=== PATIENT | female | born 1940 | race Caucasian/White ===

== ENCOUNTER 2017-02-01 18:47 | Inpatient (IN) | payer MEDICARE, OTHER ==
--- NOTE | 2017-02-01 19:25 | EDM.PDOC ---
ED HPI GENERAL MEDICAL PROBLEM - General Chief Complaint: Respiratory Problem Stated Complaint: COUGHING, [id number] Time Seen by Provider: 02/01/17 19:25 Source of Information: Reports: Patient History Limitations: Reports: No Limitations - History of Present Illness INITIAL COMMENTS - FREE TEXT/NARRATIVE: cough fever chills since last night, worse now. 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 Headache Pain Score (Numeric/FACES): 2 - Related Data Allergies Allergy/AdvReac Type Severity Reaction Status Date / Time codeine Allergy Redness Verified 02/01/17 19:14 hydrocodone Allergy Itching Verified 02/01/17 19:14 oxycodone Allergy Itching Verified 02/01/17 19:14 Home Meds: Home Meds Aspirin [[place] Aspirin] 81 mg PO DAILY 08/27/14 [History] Calcium Carbonate [Calcium] 500 mg PO DAILY 08/27/14 [History] Cholecalciferol (Vitamin D3) [Vitamin D] 1 tab PO DAILY 08/27/14 [History] Famotidine [Pepcid AC] 20 mg PO ASDIRECTED PRN 08/27/14 [History] Multivitamin [Multivitamins] 1 cap PO DAILY 08/27/14 [History] Naproxen 375 mg PO ASDIRECTED PRN 08/27/14 [History] Ibandronate Sodium 150 mg PO ASDIRECTED 09/01/15 [History] Valsartan/Hydrochlorothiazide [Valsartan-Hctz 320-25 mg Tab] 1 each PO DAILY [History] Past Medical History HEENT History: Reports: Impaired Vision Cardiovascular History: Reports: Hypertension Respiratory History: Reports: None Gastrointestinal History: Reports: GERD Genitourinary History: Reports: UTI, Recurrent [employer]ER History: Reports: Musculoskeletal History: Reports: Osteoarthritis Neurological History: Reports: TIA Psychiatric History: Reports: None Endocrine/Metabolic History: Reports: Diabetes, Type II Hematologic History: Reports: None Immunologic History: Reports: None Other Oncologic History: melanoma Dermatologic History: Reports: Melanoma - Infectious Disease History Infectious Disease History: Reports: Chicken Pox, Measles, Mumps - Past Surgical History HEENT Surgical History: Reports: Cataract Surgery, Naso-Sinus Surgery GI Surgical History: Reports: Appendectomy, Cholecystectomy, Hernia Repair/Other Female Surgical History: Reports: Hysterectomy, Tubal Ligation Social & Family History - Family History Family Medical History: Noncontributory - Tobacco Use Smoking Status *Q: Unknown Ever Smoked Second Hand Smoke Exposure: Yes - Caffeine Use Caffeine Use: Reports: Coffee - Alcohol Use Days Per Week of Alcohol Use: 0 - Recreational Drug Use Recreational Drug Use: No - Living Situation & Occupation Occupation: Retired ED ROS GENERAL - Review of Systems Review Of Systems: ROS reveals no pertinent complaints other than HPI. ED EXAM, GENERAL - Physical Exam Exam: See Below Exam Limited By: No Limitations General Appearance: Alert, WD/WN, Mild Distress, Other (cough spasms) Ears: Hearing Grossly Normal Throat/Mouth: Normal Voice, No Airway Compromise Head: Atraumatic Neck: Non-Tender, Full Range of Motion Respiratory/Chest: No Respiratory Distress, No Accessory Muscle Use, Rhonchi, Wheezing. No: Decreased Breath Sounds, Accessory Muscle Use, Retractions, Splinting Cardiovascular: Regular Rate, Rhythm GI/Abdominal: Soft, Non-Tender Neurological: Alert, Oriented, Normal Cognition, Normal Gait, No Motor/Sensory Deficits Psychiatric: Normal Affect, Normal Mood Skin Exam: Warm, Dry Lymphatic: No Adenopathy Course - Vital Signs Last Recorded V/S: Last Vital Signs Temp 37.3 C 02/01/17 19:07 Pulse 96 02/01/17 19:07 Resp 16 02/01/17 19:07 BP 119/63 02/01/17 19:07 Pulse Ox 97 02/01/17 19:07 - Orders/Labs/Meds Orders: Active Orders 24 hr Category Date Time Status RT Aerosol Therapy [RC] ASDIRECTED Care 02/01/17 20:03 Active CULTURE BLOOD [BC] Stat Lab 02/01/17 19:30 Received Labs: Laboratory Tests 02/01/17 02/01/17 02/01/17 Range/Units 19:30 19:30 19:30 WBC 14.8 H (5.0-10.0) 10^3/uL RBC 4.52 (4.2-5.4) 10^6/uL Hgb 13.5 (12.0-16.0) g/dL Hct 40.6 (37.0-47.0) % MCV 89.8 (80-100) fL MCH 29.9 (27.0-34.0) pg MCHC 33.3 (33.0-35.0) g/dL Plt Count 277 (150-450) 10^3/uL Neut % (Auto) 70.0 (42.2-75.2) % Lymph % (Auto) 16.5 L (20.5-50.1) % [place] % (Auto) 12.6 H (2-8) % Eos % (Auto) 0.8 L (1.0-3.0) % Baso % (Auto) 0.1 (0.0-1.0) % Sodium 136 (135-145) mmol/L Potassium 3.2 L (3.6-5.0) mmol/L Chloride 101 (101-111) mmol/L Carbon Dioxide 26.0 (21.0-31.0) mmol/L Anion Gap 12.2 BUN 12 (7-18) mg/dL Creatinine 0.6 (0.6-1.3) mg/dL Est Cr Clr Drug Dosing TNP Estimated GFR (MDRD) > 60 BUN/Creatinine Ratio 20.00 Glucose 122 H (74-105) mg/dL Lactic Acid 1.1 (0.5-2.2) mmol/L Calcium 8.8 (8.4-10.2) mg/dl Total Bilirubin 0.6 (0.2-1.0) mg/dL AST 14 (10-42) IU/L ALT 14 (10-60) IU/L Alkaline Phosphatase 41 L (42-121) IU/L B-Natriuretic Peptide 42 (0-100) pg/ml Total Protein 7.0 (6.7-8.2) g/dl Albumin 3.8 (3.2-5.5) g/dl Globulin 3.2 Albumin/Globulin Ratio 1.19 Meds: Medications Discontinued Medications Generic Name Dose Route Start Last Admin Trade Name Freq PRN Reason Stop Dose Admin Albuterol/Ipratropium 3 ml 02/01/17 20:03 02/01/17 20:13 Duoneb 3.0-0.5 Mg/3 Ml NEB 02/01/17 20:04 3 ml ONETIME ONE Administration Methylprednisolone Sodium Succinate 125 mg 02/01/17 20:03 02/01/17 20:13 Solu-Medrol IVPUSH 02/01/17 20:04 125 mg ONETIME ONE Administration - Re-Assessments/Exams Free Text/Narrative Re-Assessment/Exam: 02/01/17 20:[address] Bangura who kindly admitted Pt. Departure - Departure Time of Disposition: 20:20 Disposition: Admitted As Inpatient 65 Condition: good Clinical Impression: Pneumonia - Discharge Information Forms: ED Department Discharge - My Orders Last 24 Hours: My Active Orders 02/01/17 19:30 CULTURE BLOOD [BC] Stat 02/01/17 20:03 RT Aerosol Therapy [RC] ASDIRECTED - Assessment/Plan Last 24 Hours: My Active Orders 02/01/17 19:30 CULTURE BLOOD [BC] Stat 02/01/17 20:03 RT Aerosol Therapy [RC] ASDIRECTED
[2017-02-01] MEDS ORDERED: Albuterol/Ipratropium 3.0-0.5 MG/3 ML Neb Soln NEB ONE (20:03)
[2017-02-01] MEDS ORDERED: methylPREDNISolone Sodium Succinate 125 MG/2 ML SDV IVPUSH ONE (20:03)
[2017-02-01 20:04] LABS: CHLORIDE,CL 101 mmol/L (101-111); SODIUM,NA 136 mmol/L (135-145)
[2017-02-01] MEDS ORDERED: Famotidine 20 MG Tab PO PRN (21:00)
[2017-02-01] MEDS ORDERED: Acetaminophen 325 MG Tab PO PRN (21:11)
[2017-02-01] MEDS ORDERED: Docusate Sodium 100 MG Cap PO PRN (21:11)
[2017-02-01] MEDS ORDERED: Albuterol 0.083% 2.5 MG/3 ML Neb Soln NEB PRN (21:11)
--- NOTE | 2017-02-01 21:15 | PCM.HP ---
H&P History of Present Illness - General Date of Service: 02/01/17 Admit Problem/Dx: Admission Diagnosis/Problem Admission Diagnosis/Problem Pneumonia - History of Present Illness Initial Comments - Free Text/Narative: The patient is a 76-year-old lady who presented with subjective fever, cough, change in voice. The cough is associated with yellow sputum production. She has no sick contact. No significant shortness of breath. Symptoms started on Thursday. She has no chest pain, does have chills. No abdominal pain, no diarrhea. Headache Pain Score (Numeric/FACES): 2 - Related Data Allergies/Adverse Reactions: Allergies Allergy/AdvReac Type Severity Reaction Status Date / Time codeine Allergy Redness Verified 02/01/17 19:14 hydrocodone Allergy Itching Verified 02/01/17 19:14 oxycodone Allergy Itching Verified 02/01/17 19:14 Home Medications: Home Meds Aspirin [[place] Aspirin] 81 mg PO DAILY 08/27/14 [History] Calcium Carbonate [Calcium] 500 mg PO DAILY 08/27/14 [History] Cholecalciferol (Vitamin D3) [Vitamin D] 1 tab PO DAILY 08/27/14 [History] Famotidine [Pepcid AC] 20 mg PO ASDIRECTED PRN 08/27/14 [History] Multivitamin [Multivitamins] 1 cap PO DAILY 08/27/14 [History] Naproxen 375 mg PO ASDIRECTED PRN 08/27/14 [History] Ibandronate Sodium 150 mg PO ASDIRECTED 09/01/15 [History] Valsartan/Hydrochlorothiazide [Valsartan-Hctz 320-25 mg Tab] 1 each PO DAILY [History] Past Medical History HEENT History: Reports: Impaired Vision Cardiovascular History: Reports: Hypertension Respiratory History: Reports: None Gastrointestinal History: Reports: GERD Genitourinary History: Reports: UTI, Recurrent [employer] History: Reports: Musculoskeletal History: Reports: Osteoarthritis Neurological History: Reports: TIA Psychiatric History: Reports: None Endocrine/Metabolic History: Reports: Diabetes, Type II Hematologic History: Reports: None Immunologic History: Reports: None Other Oncologic History: melanoma Dermatologic History: Reports: Melanoma - Infectious Disease History Infectious Disease History: Reports: Chicken Pox, Measles, Mumps - Past Surgical History HEENT Surgical History: Reports: Cataract Surgery, Naso-Sinus Surgery GI Surgical History: Reports: Appendectomy, Cholecystectomy, Hernia Repair/Other Female Surgical History: Reports: Hysterectomy, Tubal Ligation Social & Family History - Family History Family Medical History: Noncontributory - Tobacco Use Smoking Status *Q: Unknown Ever Smoked Second Hand Smoke Exposure: Yes - Caffeine Use Caffeine Use: Reports: Coffee - Alcohol Use Days Per Week of Alcohol Use: 0 - Recreational Drug Use Recreational Drug Use: No - Living Situation & Occupation Occupation: Retired H&P Review of Systems - Review of Systems: Review Of Systems: See Below General: Reports: Fever, Chills Pulmonary: Reports: Cough, Sputum. Denies: Shortness of Breath, Wheezing Cardiovascular: Denies: Chest Pain Gastrointestinal: Denies: Abdominal Pain Genitourinary: Denies: Dysuria Exam - Exam Exam: See Below - Vital Signs Vital Signs: Last Vital Signs Temp 37.3 C 02/01/17 19:07 Pulse 96 02/01/17 19:07 Resp 16 02/01/17 19:07 BP 119/63 02/01/17 19:07 Pulse Ox 97 02/01/17 19:07 Weight: 73.936 kg - Exam Quality Assessment: No: Supplemental Oxygen General: Alert, Oriented Neck: Supple, Trachea Midline, 2 Lungs: Clear to Auscultation, Normal Respiratory Effort Cardiovascular: Regular Rate, Regular Rhythm Abdomen: Normal Bowel Sounds, Soft Back Exam: Normal Inspection, Full Range of Motion, NT Extremities: 3, Normal Inspection, 10 Skin: Warm, Dry, Intact Neuro Extensive - Mental Status: Alert, Oriented x3, Normal Mood/Affect, Normal Cognition Psychiatric: Alert, Normal Affect, Normal Mood - Patient Data Result Diagrams: 02/01/17 19:30 02/01/17 19:30 Imaging Impressions last 24 hrs: chest x-ray per official reading shows a left lower lobe pneumonia *Q Meaningful Use (ADM) - VTE *Q VTE Criteria *Q: - Stroke *Q Stroke Criteria *Q: - AMI *Q AMI Criteria *Q: - Problem List (1) Pneumonia SNOMED Code(s): 795587250 ICD Code: J18.9 - PNEUMONIA, UNSPECIFIED ORGANISM Status: Acute Current Visit: Yes Problem List Initiated/Reviewed/Updated: Yes Orders Last 24hrs: Active Orders 24 hr Category Date Time Status Antiembolic Devices [RC] PER UNIT ROUTINE Care 02/01/17 21:12 Ordered Oxygen Therapy [RC] PRN Care 02/01/17 21:11 Ordered Peripheral IV Care [RC] . DIRECTED Care 02/01/17 21:12 Ordered RT Aerosol Therapy [RC] ASDIRECTED Care 02/01/17 21:12 Ordered Up With Assistance [RC] ASDIRECTED Care 02/01/17 21:11 Ordered VTE/DVT Education [RC] PER UNIT ROUTINE Care 02/01/17 21:11 Ordered Vital Signs [RC] Q4H Care 02/01/17 21:11 Ordered Regular Diet [DIET] Diet 02/01/17 Breakfast Ordered BASIC METABOLIC PANEL,BMP [CHEM] AM Lab 02/02/17 05:15 Ordered CBC WITH AUTO DIFF [HEME] AM Lab 02/02/17 05:15 Ordered CULTURE SPUTUM + SMEAR [RM] Routine Lab 02/01/17 21:04 Uncollected STREP SCRN A RAPID W CULT CONF [RM] Routine Lab 02/01/17 21:05 Uncollected Acetaminophen [Tylenol] Med 02/01/17 21:11 Ordered 650 mg PO Q4H PRN Albuterol [Proventil Neb Soln] Med 02/01/17 21:11 Ordered 2.5 mg NEB Q2H PRN Aspirin Med 02/02/17 09:00 Ordered 81 mg PO DAILY Azithromycin [Zithromax] 500 mg Med 02/01/17 21:15 Ordered Sodium Chloride 0.9% [Normal Saline] 250 ml IV Q24H Calcium Carbonate [Calcium] Med 02/02/17 09:00 Ordered 500 mg PO DAILY Cholecalciferol (Vitamin D3) [Vitamin D3] Med 02/02/17 09:00 Ordered 1 tab PO DAILY Docusate Sodium [Colace] Med 02/01/17 21:11 Ordered 100 mg PO BID PRN Famotidine [Pepcid] Med 02/01/17 20:59 Ordered 20 mg PO DAILY PRN Heparin Sodium Med 02/01/17 22:00 Ordered 5,000 units SUBCUT Q8HR Multivitamin [Multivitamins] Med 02/02/17 09:00 Ordered 1 cap PO DAILY Sodium Chloride 0.9% [Saline Flush] Med 02/01/17 21:11 Ordered 10 ml FLUSH ASDIRECTED PRN Valsartan/Hydrochlorothiazide [Valsartan-Hctz 320-25 mg Med 02/02/17 09:00 Ordered Tab] 1 each PO DAILY Zolpidem [Ambien] Med 02/01/17 21:11 Ordered 5 mg PO BEDTIME PRN cefTRIAXone [Rocephin] 1 gm Med 02/01/17 21:15 Ordered Sodium Chloride 0.9% [Normal Saline] 50 ml IV Q24H Antiembolic Hose [OM.PC] Per Unit Routine Ot 02/01/17 21:12 Ordered Peripheral IV Insertion Adult [OM.PC] Routine Oth 02/01/17 21:11 Ordered Saline Lock Insert [OM.PC] Routine Oth 02/01/17 21:11 Ordered Resuscitation Status Routine Resus Stat 02/01/17 21:11 Ordered Medication Orders Aspirin (Aspirin) 81 mg PO DAILY AISHA Famotidine (Pepcid) 20 mg PO DAILY PRN PRN Reason: Heartburn Azithromycin 500 mg/ Sodium (Chloride) 250 mls @ 250 mls/hr IV Q24H AISHA Ceftriaxone Sodium 1 gm/ (Sodium Chloride) 50 mls @ 100 mls/hr IV Q24H AISHA Non-Formulary Medication (Calcium Carbonate [Calcium]) 500 mg PO DAILY AISHA Non-Formulary Medication (Cholecalciferol (Vitamin D3) [Vitamin D3]) 1 tab PO DAILY AISHA Non-Formulary Medication (Multivitamin [Multivitamins]) 1 cap PO DAILY AISHA Non-Formulary Medication (Valsartan/Hydrochlorothiazide [Valsartan-Hctz 320-25 Mg Tab]) 1 each PO DAILY AISHA Assessment/Plan Comment:: 76-year-old lady who presented with cough, yellow sputum, subjective fever, chills Noted to have an abnormal chest x-ray with left lower lobe pneumonia Pneumonia Will obtain blood culture, sputum culture This is a community-acquired pneumonia We'll treat with azithromycin and Rocephin Use as needed albuterol for shortness of breath Hypertension Treat with losartan and hydrochlorothiazide DVT prophylaxis with a subcutaneous heparin
[2017-02-01] MEDS ORDERED: Azithromycin 500 MG in Sodium Chloride 0.9% 250 ML IV SCH (21:30)
[2017-02-01] MEDS ORDERED: Azithromycin 500 MG Vial ONE (22:15)
[2017-02-01] MEDS ORDERED: cefTRIAXone 1 GM Vial ONE (22:23)
[2017-02-01] MEDS: Azithromycin 500 MG in Sodium Chloride 0.9% 250 ML IV SCH (22:28)
[2017-02-01] MEDS: Heparin Sodium 5,000 Units/ML Vial SUBCUT SCH (22:29)
[2017-02-01] MEDS: Zolpidem 5 MG Tab PO PRN (22:29)
[2017-02-01] MEDS: cefTRIAXone 1 GM in Sodium Chloride 0.9% 50 ML IV SCH (23:38)
[2017-02-02] MEDS: Sodium Chloride 0.9% 10 ML Syringe FLUSH PRN (00:17)
[2017-02-02] MEDS: Heparin Sodium 5,000 Units/ML Vial SUBCUT SCH ×3 (05:45→21:40)
[2017-02-02 06:52] LABS: CHLORIDE,CL 101 mmol/L (101-111); SODIUM,NA 138 mmol/L (135-145)
[2017-02-02] MEDS ORDERED: Calcium Carbonate 500 MG Tab.Chew PO SCH (09:00)
[2017-02-02] MEDS: Cholecalciferol (Vitamin D3) 400 Unit Tab PO SCH (11:06)
[2017-02-02] MEDS: Hydrochlorothiazide 25 MG Tab PO SCH (11:07)
[2017-02-02] MEDS: Aspirin 81 MG Tab.Chew PO SCH (11:07)
[2017-02-02] MEDS: Multivitamins,Therapeutic Tab PO SCH (11:08)
--- NOTE | 2017-02-02 11:57 | PCM.PN ---
- General Info Date of Service: 02/02/17 Admission Dx/Problem (Free Text): Admission Diagnosis/Problem Admission Diagnosis/Problem Pneumonia Subjective Update: feeling better, no shortness of breath. Some cough but still yellow sputum production No chest pain associated with this Feeling stronger - Review of Systems General: Reports: Fever Pulmonary: Denies: shortness of breath Cardiovascular: Denies: Chest Pain Gastrointestinal: Denies: Abdominal pain Genitourinary: Denies: dysuria - Patient Data Vitals - most recent: Last Vital Signs Temp 36.1 C 02/02/17 07:00 Pulse 68 02/02/17 07:00 Resp 20 02/02/17 07:00 BP 136/72 02/02/17 11:07 Pulse Ox 91 L 02/02/17 07:00 Weight - most recent: 73.936 kg I&O - last 24 hours: Intake & Output 02/01/17 02/02/17 02/02/17 22:59 06:59 14:59 Intake Total 650 Output Total 350 300 Balance -350 350 Lab Results last 24 hrs: Laboratory Results - last 24 hr 02/02/17 02/02/17 Range/Units 06:10 06:10 WBC 13.6 H (5.0-10.0) 10^3/uL RBC 4.89 (4.2-5.4) 10^6/uL Hgb 14.5 (12.0-16.0) g/dL Hct 44.1 (37.0-47.0) % MCV 90.2 (80-100) fL MCH 29.7 (27.0-34.0) pg MCHC 32.9 L (33.0-35.0) g/dL Plt Count 289 (150-450) 10^3/uL Neut % (Auto) 87.0 H (42.2-75.2) % Lymph % (Auto) 11.4 L (20.5-50.1) % [place] % (Auto) 1.6 L (2-8) % Eos % (Auto) 0.0 L (1.0-3.0) % Baso % (Auto) 0.0 (0.0-1.0) % Sodium 138 (135-145) mmol/L Potassium 3.6 (3.6-5.0) mmol/L Chloride 101 (101-111) mmol/L Carbon Dioxide 27.0 (21.0-31.0) mmol/L Anion Gap 13.6 BUN 15 (7-18) mg/dL Creatinine 0.6 (0.6-1.3) mg/dL Est Cr Clr Drug Dosing TNP Estimated GFR (MDRD) > 60 Glucose 200 H (74-105) mg/dL Calcium 8.9 (8.4-10.2) mg/dl Lee Results last 24 hrs: Microbiology 02/02/17 06:25 Group A Streptococcus Rapid Screen - Final Throat Positive Strep A Screen Med Orders - Current: Current Medications Acetaminophen (Tylenol) 650 mg PO Q4H PRN PRN Reason: Pain (Mild 1-3)/fever Albuterol (Proventil Neb Soln) 2.5 mg NEB Q2H PRN PRN Reason: shortness of breath/wheezing Aspirin (Aspirin) 81 mg PO DAILY [facility] Last Admin: 02/02/17 11:07 Dose: 81 mg Calcium Carbonate (Calcium Carbonate/Vitamin D 1250 Mg-200 Unit) 1 tab PO DAILY [facility] Cholecalciferol (Vitamin D3) 1,000 units PO DAILY [facility] Last Admin: 02/02/17 11:06 Dose: 1,000 units Docusate Sodium (Colace) 100 mg PO BID PRN PRN Reason: Constipation Last Admin: 02/01/17 22:28 Dose: 100 mg Famotidine (Pepcid) 20 mg PO DAILY PRN PRN Reason: Heartburn Last Admin: 02/01/17 22:29 Dose: 20 mg Heparin Sodium (Porcine) (Heparin Sodium) 5,000 units SUBCUT Q8HR [facility] Last Admin: 02/02/17 05:45 Dose: 5,000 units Hydrochlorothiazide (Hydrochlorothiazide) 25 mg PO DAILY [facility] Last Admin: 02/02/17 11:07 Dose: 25 mg Ceftriaxone Sodium 1 gm/ (Sodium Chloride) 50 mls @ 100 mls/hr IV Q24H [facility] Last Admin: 02/01/17 23:38 Dose: 100 mls/hr Azithromycin 500 mg/ Sodium (Chloride) 250 mls @ 250 mls/hr IV Q24H [facility] Last Admin: 02/01/17 22:28 Dose: 250 mls/hr Insulin Aspart (Novolog) 0 unit SUBCUT TIDAC [facility] PRN Reason: Protocol Multivitamins (Thera) 1 each PO DAILY [facility] Last Admin: 02/02/17 11:08 Dose: 1 each Sodium Chloride (Saline Flush) 10 ml FLUSH ASDIRECTED PRN PRN Reason: Keep Vein Open Last Admin: 02/02/17 00:17 Dose: 10 ml Valsartan (Diovan) 320 mg PO DAILY [facility] Last Admin: 02/02/17 11:07 Dose: 320 mg Zolpidem Tartrate (Ambien) 5 mg PO BEDTIME PRN PRN Reason: Sleep Last Admin: 02/01/17 22:29 Dose: 5 mg Discontinued Medications Albuterol/Ipratropium (Duoneb 3.0-0.5 Mg/3 Ml) 3 ml NEB ONETIME ONE Stop: 02/01/17 20:04 Last Admin: 02/01/17 20:13 Dose: 3 ml Azithromycin (Zithromax) Confirm Administered Dose 500 mg .ROUTE .STK-MED ONE Stop: 02/01/17 22:16 Last Admin: 02/01/17 22:32 Dose: Not Given Calcium Carbonate/Glycine (Tums) 500 mg PO DAILY [facility] Last Admin: 02/02/17 11:04 Dose: Not Given Ceftriaxone Sodium (Rocephin) Confirm Administered Dose 1 gm .ROUTE .STK-MED ONE Stop: 02/01/17 22:24 Last Admin: 02/01/17 22:33 Dose: Not Given Azithromycin 500 mg/ Sodium (Chloride) 250 mls @ 250 mls/hr IV Q24H [facility] Methylprednisolone Sodium Succinate (Solu-Medrol) 125 mg IVPUSH ONETIME ONE Stop: 02/01/17 20:04 Last Admin: 02/01/17 20:13 Dose: 125 mg - Exam General: alert, oriented Neck: supple Lungs: Clear to auscultation, Normal respiratory effort Cardiovascular: Regular Rate, Regular Rhythm Abdomen: bowel sounds present, soft, no tenderness, no distension Extremities: no edema - Problem List & Annotations (1) Pneumonia SNOMED Code(s): 769925422 Code(s): J18.9 - PNEUMONIA, UNSPECIFIED ORGANISM Status: Acute Current Visit: Yes (2) Hyperglycemia SNOMED Code(s): 57871759 Code(s): R73.9 - HYPERGLYCEMIA, UNSPECIFIED Status: Acute Current Visit: Yes - Problem List Review Problem List Initiated/Reviewed/Updated: Yes - My Orders Last 24 Hours: My Active Orders 02/01/17 21:00 Famotidine [Pepcid] 20 mg PO DAILY PRN 02/01/17 21:11 Oxygen Therapy [RC] PRN Up With Assistance [RC] ASDIRECTED VTE/DVT Education [RC] PER UNIT ROUTINE Vital Signs [RC] Q4H Acetaminophen [Tylenol] 650 mg PO Q4H PRN Albuterol [Proventil Neb Soln] 2.5 mg NEB Q2H PRN Docusate Sodium [Colace] 100 mg PO BID PRN Sodium Chloride 0.9% [Saline Flush] 10 ml FLUSH ASDIRECTED PRN Zolpidem [Ambien] 5 mg PO BEDTIME PRN Peripheral IV Insertion Adult [OM.PC] Routine Saline Lock Insert [OM.PC] Routine Resuscitation Status Routine 02/01/17 21:12 Antiembolic Devices [RC] 08,20 Peripheral IV Care [RC] 08,20 RT Aerosol Therapy [RC] ASDIRECTED Antiembolic Hose [OM.PC] Per Unit Routine 02/01/17 21:30 cefTRIAXone [Rocephin] 1 gm Sodium Chloride 0.9% [Normal Saline] 50 ml IV Q24H 02/01/17 22:00 Azithromycin [Zithromax] 500 mg Sodium Chloride 0.9% [Normal Saline] 250 ml IV Q24H Heparin Sodium 5,000 units SUBCUT Q8HR 02/02/17 08:00 CULTURE SPUTUM + SMEAR [RM] Routine 02/02/17 09:00 Aspirin 81 mg PO DAILY Cholecalciferol (Vitamin D3) [Vitamin D3] 1,000 units PO DAILY Hydrochlorothiazide 25 mg PO DAILY Multivitamins,Therapeutic [Thera] 1 each PO DAILY Valsartan [Diovan] 320 mg PO DAILY 02/02/17 11:54 Glucose [Blood Glucose Check, Bedside] [RC] QIDACANDBED 02/02/17 17:00 Insulin Aspart [NovoLOG] See Protocol SUBCUT TIDAC 02/03/17 05:15 BASIC METABOLIC PANEL,BMP [CHEM] AM CBC WITH AUTO DIFF [HEME] AM 02/03/17 09:00 Calcium Carbonate/Vitamin D3 [Calcium Carbonate/Vitamin D 1250 MG-200 Unit] 1 tab PO DAILY - Plan Plan:: 76-year-old lady who presented with cough, yellow sputum, subjective fever, chills Noted to have an abnormal chest x-ray with left lower lobe pneumonia community-acquired Pneumonia blood culture: pending sputum culture: pending We'll treat with azithromycin and Rocephin Use as needed albuterol for shortness of breath Hypertension Treat with losartan and hydrochlorothiazide hyperglycemia The patient did receive a steroid dose in the emergency room For now follow blood sugars, and supplemental insulin as needed DVT prophylaxis with a subcutaneous heparin
[2017-02-02] MEDS: Insulin Aspart 100 Units/ML 3 ML Pen SUBCUT SCH (17:28)
[2017-02-02] MEDS ORDERED: cefTRIAXone 1 GM Vial ONE (21:19)
[2017-02-02] MEDS: cefTRIAXone 1 GM in Sodium Chloride 0.9% 50 ML IV SCH (21:40)
[2017-02-02] MEDS: Azithromycin 500 MG in Sodium Chloride 0.9% 250 ML IV SCH (22:47)
[2017-02-02] MEDS: Zolpidem 5 MG Tab PO PRN (23:29)
[2017-02-03] MEDS: Heparin Sodium 5,000 Units/ML Vial SUBCUT SCH ×3 (06:47→21:19)
[2017-02-03 06:58] LABS: CHLORIDE,CL 104 mmol/L (101-111); SODIUM,NA 142 mmol/L (135-145)
[2017-02-03] MEDS: Insulin Aspart 100 Units/ML 3 ML Pen SUBCUT SCH ×3 (08:19→17:13)
[2017-02-03] MEDS: Multivitamins,Therapeutic Tab PO SCH (09:09)
[2017-02-03] MEDS: Calcium Carbonate/Vitamin D3 1250 MG-200 Unit Tab PO SCH (09:09)
[2017-02-03] MEDS: Aspirin 81 MG Tab.Chew PO SCH (09:09)
[2017-02-03] MEDS: Cholecalciferol (Vitamin D3) 400 Unit Tab PO SCH (09:09)
[2017-02-03] MEDS: Hydrochlorothiazide 25 MG Tab PO SCH (09:10)
[2017-02-03] MEDS: FATTY ACIDS PO SCH (09:14)
[2017-02-03] MEDS: FISH OIL PO SCH (09:14)
[2017-02-03] MEDS: OMEGA PO SCH (09:14)
[2017-02-03] MEDS ORDERED: Potassium Chloride 10 MEQ Tab.ER PO ONE (11:44)
[2017-02-03] MEDS ORDERED: guaiFENesin 100 MG/5 ML Soln 5 ML UD Cup PO PRN (11:56)
--- NOTE | 2017-02-03 11:56 | PCM.PN ---
- General Info Date of Service: 02/03/17 Admission Dx/Problem (Free Text): Admission Diagnosis/Problem Admission Diagnosis/Problem Pneumonia Subjective Update: no shortness of breath. lots of cough with yellow sputum production No chest pain associated with the cough - Review of Systems General: Reports: Weakness. Denies: Fever Pulmonary: Reports: cough, sputum. Denies: shortness of breath, wheezing Cardiovascular: Denies: Chest Pain Gastrointestinal: Denies: Abdominal pain Genitourinary: Denies: dysuria - Patient Data Vitals - most recent: Last Vital Signs Temp 36.6 C 02/03/17 11:00 Pulse 83 02/03/17 11:00 Resp 20 02/03/17 11:00 BP 120/70 02/03/17 11:00 Pulse Ox 96 02/03/17 11:00 Weight - most recent: 73.936 kg I&O - last 24 hours: Intake & Output 02/02/17 02/03/17 02/03/17 22:59 06:59 14:59 Intake Total 1430 100 Balance 1430 100 Lab Results last 24 hrs: Laboratory Results - last 24 hr 02/02/17 02/02/17 02/03/17 Range/Units 17:03 21:06 06:00 WBC 13.6 H (5.0-10.0) 10^3/uL RBC 4.24 (4.2-5.4) 10^6/uL Hgb 12.6 (12.0-16.0) g/dL Hct 38.4 (37.0-47.0) % MCV 90.6 (80-100) fL MCH 29.7 (27.0-34.0) pg MCHC 32.8 L (33.0-35.0) g/dL Plt Count 249 (150-450) 10^3/uL Neut % (Auto) 73.1 (42.2-75.2) % Lymph % (Auto) 18.6 L (20.5-50.1) % [place] % (Auto) 8.1 H (2-8) % Eos % (Auto) 0.1 L (1.0-3.0) % Baso % (Auto) 0.1 (0.0-1.0) % Sodium (135-145) mmol/L Potassium (3.6-5.0) mmol/L Chloride (101-111) mmol/L Carbon Dioxide (21.0-31.0) mmol/L Anion Gap BUN (7-18) mg/dL Creatinine (0.6-1.3) mg/dL Est Cr Clr Drug Dosing Estimated GFR (MDRD) Glucose (74-105) mg/dL POC Glucose 172 H 159 H (83-110) mg/dl Calcium (8.4-10.2) mg/dl 02/03/17 02/03/17 02/03/17 Range/Units 06:00 07:56 10:44 WBC (5.0-10.0) 10^3/uL RBC (4.2-5.4) 10^6/uL Hgb (12.0-16.0) g/dL Hct (37.0-47.0) % MCV (80-100) fL MCH (27.0-34.0) pg MCHC (33.0-35.0) g/dL Plt Count (150-450) 10^3/uL Neut % (Auto) (42.2-75.2) % Lymph % (Auto) (20.5-50.1) % [place] % (Auto) (2-8) % Eos % (Auto) (1.0-3.0) % Baso % (Auto) (0.0-1.0) % Sodium 142 (135-145) mmol/L Potassium 3.3 L (3.6-5.0) mmol/L Chloride 104 (101-111) mmol/L Carbon Dioxide 29.0 (21.0-31.0) mmol/L Anion Gap 12.3 BUN 16 (7-18) mg/dL Creatinine 0.6 (0.6-1.3) mg/dL Est Cr Clr Drug Dosing TNP Estimated GFR (MDRD) > 60 Glucose 112 H (74-105) mg/dL POC Glucose 108 119 H (83-110) mg/dl Calcium 8.4 (8.4-10.2) mg/dl [place] Results last 24 hrs: Microbiology 02/02/17 08:00 Gram Stain - Final Sputum - Expectorated Med Orders - Current: Current Medications Acetaminophen (Tylenol) 650 mg PO Q4H PRN PRN Reason: Pain (Mild 1-3)/fever Albuterol (Proventil Neb Soln) 2.5 mg NEB Q2H PRN PRN Reason: shortness of breath/wheezing Aspirin (Aspirin) 81 mg PO DAILY [facility] Last Admin: 02/03/17 09:09 Dose: 81 mg Calcium Carbonate (Calcium Carbonate/Vitamin D 1250 Mg-200 Unit) 1 tab PO DAILY [facility] Last Admin: 02/03/17 09:09 Dose: 1 tab Cholecalciferol (Vitamin D3) 1,000 units PO DAILY [facility] Last Admin: 02/03/17 09:09 Dose: 1,000 units Docusate Sodium (Colace) 100 mg PO BID PRN PRN Reason: Constipation Last Admin: 02/01/17 22:28 Dose: 100 mg Famotidine (Pepcid) 20 mg PO DAILY PRN PRN Reason: Heartburn Last Admin: 02/01/17 22:29 Dose: 20 mg Heparin Sodium (Porcine) (Heparin Sodium) 5,000 units SUBCUT Q8HR [facility] Last Admin: 02/03/17 06:47 Dose: 5,000 units Hydrochlorothiazide (Hydrochlorothiazide) 25 mg PO DAILY [facility] Last Admin: 02/03/17 09:10 Dose: 25 mg Ceftriaxone Sodium 1 gm/ (Sodium Chloride) 50 mls @ 100 mls/hr IV Q24H [facility] Last Admin: 02/02/17 21:40 Dose: 100 mls/hr Azithromycin 500 mg/ Sodium (Chloride) 250 mls @ 250 mls/hr IV Q24H [facility] Last Admin: 02/02/17 22:47 Dose: 250 mls/hr Insulin Aspart (Novolog) 0 unit SUBCUT TIDAC [facility] PRN Reason: Protocol Last Admin: 02/03/17 11:23 Dose: Not Given Multivitamins (Thera) 1 each PO DAILY [facility] Last Admin: 02/03/17 09:09 Dose: 1 each [place]-3 Fatty Acids/Fish Oil [Fish Oil 1 ,200 Mg SoftgelOwn Med 2 each PO DAILY [facility] Last Admin: 02/03/17 09:14 Dose: 2 each Potassium Chloride (Klor-Con 10) 40 meq PO ONETIME ONE Stop: 02/03/17 11:45 Sodium Chloride (Saline Flush) 10 ml FLUSH ASDIRECTED PRN PRN Reason: Keep Vein Open Last Admin: 02/02/17 00:17 Dose: 10 ml Valsartan (Diovan) 320 mg PO DAILY [facility] Last Admin: 02/03/17 09:10 Dose: 320 mg Zolpidem Tartrate (Ambien) 5 mg PO BEDTIME PRN PRN Reason: Sleep Last Admin: 02/02/17 23:29 Dose: 5 mg Discontinued Medications Albuterol/Ipratropium (Duoneb 3.0-0.5 Mg/3 Ml) 3 ml NEB ONETIME ONE Stop: 02/01/17 20:04 Last Admin: 02/01/17 20:13 Dose: 3 ml Azithromycin (Zithromax) Confirm Administered Dose 500 mg .ROUTE .STK-MED ONE Stop: 02/01/17 22:16 Last Admin: 02/01/17 22:32 Dose: Not Given Calcium Carbonate/Glycine (Tums) 500 mg PO DAILY [facility] Last Admin: 02/02/17 11:04 Dose: Not Given Ceftriaxone Sodium (Rocephin) Confirm Administered Dose 1 gm .ROUTE .STK-MED ONE Stop: 02/01/17 22:24 Last Admin: 02/01/17 22:33 Dose: Not Given Ceftriaxone Sodium (Rocephin) Confirm Administered Dose 1 gm .ROUTE .STK-MED ONE Stop: 02/02/17 21:20 Last Admin: 02/03/17 00:55 Dose: Not Given Azithromycin 500 mg/ Sodium (Chloride) 250 mls @ 250 mls/hr IV Q24H [facility] Methylprednisolone Sodium Succinate (Solu-Medrol) 125 mg IVPUSH ONETIME ONE Stop: 02/01/17 20:04 Last Admin: 02/01/17 20:13 Dose: 125 mg - Exam General: alert, oriented HEENT: Other (raspy voice) Neck: supple Lungs: Clear to auscultation, Normal respiratory effort Cardiovascular: Regular Rate, Regular Rhythm Abdomen: bowel sounds present Extremities: no edema - Problem List & Annotations (1) Pneumonia SNOMED Code(s): 672122772 Code(s): J18.9 - PNEUMONIA, UNSPECIFIED ORGANISM Status: Acute Current Visit: Yes (2) Hyperglycemia SNOMED Code(s): 60718135 Code(s): R73.9 - HYPERGLYCEMIA, UNSPECIFIED Status: Acute Current Visit: Yes - Problem List Review Problem List Initiated/Reviewed/Updated: Yes - My Orders Last 24 Hours: My Active Orders 02/02/17 11:54 Glucose [Blood Glucose Check, Bedside] [RC] QIDACANDBED 02/02/17 17:00 Insulin Aspart [NovoLOG] See Protocol SUBCUT TIDAC 02/03/17 09:00 Calcium Carbonate/Vitamin D3 [Calcium Carbonate/Vitamin D 1250 MG-200 Unit] 1 tab PO DAILY [place]-3 Fatty Acids/Fish Oil [Fish Oil 1,200 mg Softgel] 2 each PO DAILY 02/03/17 11:44 Potassium Chloride [Klor-Con 10] 40 meq PO ONETIME ONE 02/04/17 05:15 BASIC METABOLIC PANEL,BMP [CHEM] AM CBC WITH AUTO DIFF [HEME] AM - Plan Plan:: 76-year-old lady who presented with cough, yellow sputum, subjective fever, chills Noted to have an abnormal chest x-ray with left lower lobe pneumonia community-acquired Pneumonia blood culture: neg - pending sputum culture: pending Rapid strep: POSITIVE We'll treat with azithromycin and Rocephin add Robitussin Use as needed albuterol for shortness of breath Hypertension Treat with losartan and hydrochlorothiazide hyperglycemia with history of diet-controlled diabetes The patient did receive a steroid dose in the emergency room For now follow blood sugars, and supplemental insulin as needed DVT prophylaxis with a subcutaneous heparin
[2017-02-03] MEDS: cefTRIAXone 1 GM in Sodium Chloride 0.9% 50 ML IV SCH (21:16)
[2017-02-03] MEDS: Sodium Chloride 0.9% 10 ML Syringe FLUSH PRN ×2 (21:16→23:03)
[2017-02-03] MEDS: Azithromycin 500 MG in Sodium Chloride 0.9% 250 ML IV SCH (23:03)
[2017-02-04] MEDS: Heparin Sodium 5,000 Units/ML Vial SUBCUT SCH (05:20)
[2017-02-04 06:02] LABS: CHLORIDE,CL 100 mmol/L (101-111); SODIUM,NA 139 mmol/L (135-145)
[2017-02-04 08:01] VITALS: BP 128/67
[2017-02-04] MEDS ORDERED: Cholecalciferol (Vitamin D3) 400 Unit Tab PO SCH (09:00)
[2017-02-04] MEDS: Insulin Aspart 100 Units/ML 3 ML Pen SUBCUT SCH (09:47)
[2017-02-04] MEDS: Calcium Carbonate/Vitamin D3 1250 MG-200 Unit Tab PO SCH (09:49)
[2017-02-04] MEDS: Multivitamins,Therapeutic Tab PO SCH (09:49)
[2017-02-04] MEDS: FATTY ACIDS PO SCH (09:50)
[2017-02-04] MEDS: OMEGA PO SCH (09:50)
[2017-02-04] MEDS: Hydrochlorothiazide 25 MG Tab PO SCH (09:50)
[2017-02-04] MEDS: Aspirin 81 MG Tab.Chew PO SCH (09:50)
[2017-02-04] MEDS: FISH OIL PO SCH (09:50)
--- NOTE | 2017-02-04 13:02 | DISCH ---
FINAL DIAGNOSES: 1. Strep pharyngitis. 2. Left lower lobe community-acquired pneumonia. 3. Hypertension. 4. Hyperglycemia with history of diet-controlled diabetes. 5. Vaginal candidiasis. SUMMARY OF HOSPITAL COURSE: Ms. Trujillo is a 76-year-old female, who presented with cough, yellow sputum with fever and chills. Chest x-ray showed left lower lobe infiltrate. Rapid strep test was positive. The patient was started on intravenous azithromycin and Rocephin. Her cough has improved as well as her shortness of breath. The patient did have some vaginal discharge with itching suggestive of candidiasis. She will be discharged on oral antibiotics Omnicef and azithromycin. She also given a dose of Diflucan. PHYSICAL EXAMINATION AT DISCHARGE: General: The patient is alert, oriented to place, time, and person. Head: Atraumatic and normocephalic. Ear, Nose, and Throat: Unremarkable. Neck: Supple. Chest: Clear to auscultation. CVS: Regular rate and rhythm. Abdomen: Soft, nontender. Extremities: No pedal edema. No finger clubbing. Skin: No rash. [facility] /[id number]
== END 2017-02-04 11:19 | disposition home or self-care (01) | DRG 195 ==
LOC: DL.ED 18:47 → UNDOADMIN 20:25 → DL.MS 20:25 → UNDODISIN 02-04 11:19
PROVIDERS: ADMIT Internal Medicine; ATTEND Internal Medicine
DX: J18.9 Pneumonia, unspecified organism (principal); J02.0 Streptococcal pharyngitis; E11.65 Type 2 diabetes mellitus with hyperglycemia; E11.9 Type 2 diabetes mellitus without complications; B37.3 Candidiasis of vulva and vagina; I10 Essential (primary) hypertension; K21.9 Gastro-esophageal reflux disease without esophagitis; Z85.820 Personal history of malignant melanoma of skin; Z88.8 Allergy status to other drugs, medicaments and biological substances; Z79.82 Long term (current) use of aspirin; Z79.899 Other long term (current) drug therapy; Z86.73 Personal history of transient ischemic attack (TIA), and cerebral infarction without residual deficits
CPT/HCPCS: 36415; 71020; 80053; 83605; 83880; 85025; 87040; 94640; 96374; 99284; J2930; 80048; 82962; 87070; 87077; 87205; 87430; A9270-GY; J0456; J0696; J1644; J1815-GY; J7050

== ENCOUNTER 2019-11-05 15:26 | Emergency (ER) | payer MEDICARE, OTHER ==
[2019-11-05] MEDS ORDERED: Doxycycline 100 MG Cap PO ONE ×2 (15:27→17:06)
[2019-11-05 17:06] LABS: ANION GAP 12.3; CHLORIDE,CL 102 mmol/L (101-111); SODIUM,NA 138 mmol/L (135-145)
[2019-11-05] MEDS ORDERED: Doxycycline 100 MG Cap ONE (17:14)
--- NOTE | 2019-11-05 17:24 | EDM.PDOC ---
ED HPI GENERAL MEDICAL PROBLEM - General Chief Complaint: Skin Complaint Stated Complaint: complication meds Time Seen by Provider: 11/05/19 16:15 Source of Information: Reports: Patient History Limitations: Reports: No Limitations - History of Present Illness INITIAL COMMENTS - FREE TEXT/NARRATIVE: Skin cancer resection to nose one week ago, Sutures out on , Noted some increased redness to area, Tonight, increasing redness and yellow drainage. Did contact [place], her surgeon not in town this weekend. On , Keflex increased. Thought warm tonight. - Related Data Allergies Allergy/AdvReac Type Severity Reaction Status Date / Time calcium carbonate Allergy Itching Verified 02/02/17 02:29 [From Ban-Acid] codeine Allergy Redness Verified 02/01/17 19:14 Dairy Products Allergy Indigestion Verified 02/02/17 02:27 hydrocodone Allergy Itching Verified 02/01/17 19:14 oxycodone Allergy Itching Verified 02/01/17 19:14 Home Meds: Home Meds Aspirin [[place] Aspirin] 81 mg PO DAILY 08/27/14 [History] Famotidine [Pepcid AC] 20 mg PO ASDIRECTED PRN 08/27/14 [History] Multivitamin [Multivitamins] 1 cap PO DAILY 08/27/14 [History] Naproxen 375 mg PO BIDMEALS PRN 08/27/14 [History] Ibandronate Sodium 150 mg PO Q30D 09/01/15 [History] Valsartan/Hydrochlorothiazide [Valsartan-Hctz 320-25 mg Tab] 1 each PO DAILY [History] Calcium Carbonate/Vitamin D3 [Calcium 600-Vit D3 800 Tab] 1 each PO DAILY [History] [place]-3 Fatty Acids/Fish Oil [Fish Oil 1,200 mg Softgel] 2 each PO DAILY [History] Azithromycin 500 mg PO DAILY #5 tablet 02/04/17 [Rx] Cefdinir [Omnicef] 300 mg PO BID #14 cap 02/04/17 [Rx] Fluconazole [Diflucan] 150 mg PO ONETIME #1 tablet 02/04/17 [Rx] guaiFENesin [Robitussin] 100 mg PO Q6H PRN #0 cup 02/04/17 [Rx] Past Medical History HEENT History: Reports: Impaired Vision Other HEENT History: bilateral cataract surgery Cardiovascular History: Reports: Hypertension Respiratory History: Reports: None Gastrointestinal History: Reports: GERD Genitourinary History: Reports: UTI, Recurrent Other Genitourinary History: Bladder repain, wears a pesory [employer] History: Reports: Other [employer] History: 9 children 7 pregnacies. 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 - Infectious Disease History Infectious Disease History: Reports: Chicken Pox, Measles, Mumps - Past Surgical History HEENT Surgical History: Reports: Cataract Surgery, Naso-Sinus Surgery GI Surgical History: Reports: Appendectomy, Cholecystectomy, Hernia Repair/Other Female Surgical History: Reports: Hysterectomy, Tubal Ligation Social & Family History - Family History Family Medical History: Noncontributory - Caffeine Use Caffeine Use: Reports: Coffee Caffeine Use Comment: 1 cup/day - Living Situation & Occupation Occupation: Retired ED ROS GENERAL - Review of Systems Review Of Systems: Comprehensive ROS is negative, except as noted in HPI. ED EXAM, SKIN/RASH Exam: See Below Exam Limited By: No Limitations General Appearance: Alert, No Apparent Distress Eye Exam: Bilateral Eye: EOMI Ears: Normal External Exam, Normal Canal Nose: Nasal Swelling, Other (Nose red mild swelling large lbilateral flap scar, intact scant yellow drainage. ). No: Normal Inspection Throat/Mouth: Normal Inspection, Normal Lips Head: Atraumatic, Normocephalic, Facial Swelling (nose) Neck: Normal Inspection, Supple, Full Range of Motion. No: Lymphadenopathy (L) , Lymphadenopathy (R) Respiratory/Chest: No Respiratory Distress, Lungs Clear, Normal Breath Sounds Cardiovascular: Normal Peripheral Pulses, Regular Rate, Rhythm GI/Abdominal: Normal Bowel Sounds, Soft, Non-Tender Extremities: Normal Inspection, Normal Range of Motion Neurological: Alert, Oriented, Normal Cognition Skin: Warm, Erythema (nose) Location, Skin: Face Associated features: Tenderness Course - Orders/Labs/Meds Orders: Active Orders 24 hr Category Date Time Status CULTURE BLOOD [BC] Stat Lab 02/29/20 16:30 Received CULTURE WOUND [RM] Stat Lab 11/05/19 16:05 Received Labs: Laboratory Tests 11/05/19 11/05/19 11/05/19 Range/Units 16:30 16:30 16:30 WBC 6.9 (5.0-10.0) 10^3/uL RBC 4.52 (4.2-5.4) 10^6/uL Hgb 13.3 (12.0-16.0) g/dL Hct 39.8 (37.0-47.0) % MCV 88.1 D (80-100) fL MCH 29.4 (27.0-34.0) pg MCHC 33.4 (33.0-35.0) g/dL Plt Count 314 (150-450) 10^3/uL Neut % (Auto) 56.1 (42.2-75.2) % Lymph % (Auto) 32.3 (20.5-50.1) % [place] % (Auto) 8.7 H (2-8) % Eos % (Auto) 2.6 (1.0-3.0) % Baso % (Auto) 0.3 (0.0-1.0) % Sodium 138 (135-145) mmol/L Potassium 3.3 L (3.6-5.0) mmol/L Chloride 102 (101-111) mmol/L Carbon Dioxide 27.0 (21.0-31.0) mmol/L Anion Gap 12.3 BUN 15 (7-18) mg/dL Creatinine 0.8 (0.6-1.3) mg/dL Est Cr Clr Drug Dosing TNP Estimated GFR (MDRD) > 60 BUN/Creatinine Ratio 18.75 Glucose 133 H (74-105) mg/dL Lactic Acid 1.4 (0.5-2.0) mmol/L Calcium 8.8 (8.4-10.2) mg/dl Total Bilirubin 0.4 (0.2-1.0) mg/dL AST 18 (10-42) IU/L ALT 13 (10-60) IU/L Alkaline Phosphatase 58 (42-121) IU/L Total Protein 7.3 (6.7-8.2) g/dl Albumin 3.9 (3.2-5.5) g/dl Globulin 3.4 Albumin/Globulin Ratio 1.15 Meds: Medications Discontinued Medications Generic Name Dose Route Start Last Admin Trade Name Jem PRN Reason Stop Dose Admin Doxycycline Hyclate 100 mg 11/05/19 17:06 11/05/19 17:18 Vibramycin PO 11/05/19 17:07 100 mg ONETIME ONE Administration Doxycycline Hyclate Confirm 11/05/19 17:14 11/05/19 17:18 Vibramycin Administered 11/05/19 17:15 Not Given Dose 200 mg .ROUTE .STK-MED ONE Departure - Departure Time of Disposition: 17:22 Disposition: Home, Self-Care 01 Condition: Good Clinical Impression: Superficial postoperative wound infection - Discharge Information *PRESCRIPTION DRUG MONITORING PROGRAM REVIEWED*: No *COPY OF PRESCRIPTION DRUG MONITORING REPORT IN PATIENT KEILA: No Instructions: Cellulitis, Adult Referrals: PCP,Unobtain [Primary Care Provider] - Forms: ED Department Discharge Additional Instructions: Gently wash area with soap and water Doxycycline 100mg twice daily Follow with surgeon on Thursday, Sooner if increased redness, swelling or drainage stop keflex Sepsis Event Note - Focused Exam Date Exam was Performed: 11/06/19 Time Exam was Performed: 14:49 - My Orders Last 24 Hours: My Active Orders 11/05/19 16:05 CULTURE WOUND [RM] Stat 11/05/19 16:30 CULTURE BLOOD [BC] Stat - Assessment/Plan Last 24 Hours: My Active Orders 11/05/19 16:05 CULTURE WOUND [RM] Stat 11/05/19 16:30 CULTURE BLOOD [BC] Stat
== END 2019-11-05 17:40 | disposition home or self-care (01) ==
LOC: DL.ED 15:26
DX: T81.41XA Infection following a procedure, superficial incisional surgical site, initial encounter (principal); I10 Essential (primary) hypertension; K21.9 Gastro-esophageal reflux disease without esophagitis; E11.9 Type 2 diabetes mellitus without complications; Z88.8 Allergy status to other drugs, medicaments and biological substances; Z88.5 Allergy status to narcotic agent; Z91.011 Allergy to milk products; Z79.82 Long term (current) use of aspirin; Z79.899 Other long term (current) drug therapy; Z86.73 Personal history of transient ischemic attack (TIA), and cerebral infarction without residual deficits
CPT/HCPCS: 36415; 80053; 83605; 85025; 87040; 87070; 87077; 87186; 99283; A9270

== ENCOUNTER 2021-07-24 19:05 | Emergency (ER) | payer MEDICARE, OTHER ==
[2021-07-24 19:34] VITALS: BP 153/123; PULSE 88
--- NOTE | 2021-07-24 19:45 | EDM.PDOC ---
ED HPI GENERAL MEDICAL PROBLEM - General Chief Complaint: Lower Extremity Injury/Pain Stated Complaint: AMBULANCE Time Seen by Provider: 07/24/21 19:35 Source of Information: Reports: Patient, EMS, RN History Limitations: Reports: No Limitations - History of Present Illness INITIAL COMMENTS - FREE TEXT/NARRATIVE: ED via [facility] with c/o pain to right hip. States helping spouse carry in box up front steps, spouse missed step and landed on her , fell landing on right hip on stair. Did not hit head, no loss of consciousness. EMS reported she had rolled from side and was leaning on steps on knees. Outdoor exposure less than 10 minutes. Alert oriented on arrival, GCS 15. - Related Data Allergies Allergy/AdvReac Type Severity Reaction Status Date / Time calcium carbonate Allergy Itching Verified 02/02/17 02:29 [From Ban-Acid] codeine Allergy Redness Verified 02/01/17 19:14 Dairy Products Allergy Indigestion Verified 02/02/17 02:27 hydrocodone Allergy Itching Verified 02/01/17 19:14 oxycodone Allergy Itching Verified 02/01/17 19:14 Home Meds: Home Meds Aspirin [[place] Aspirin] 81 mg PO DAILY 08/27/14 [History] Famotidine [Pepcid AC] 20 mg PO ASDIRECTED PRN 08/27/14 [History] Multivitamin [Multivitamins] 1 cap PO DAILY 08/27/14 [History] Naproxen 375 mg PO BIDMEALS PRN 08/27/14 [History] Ibandronate Sodium 150 mg PO Q30D 09/01/15 [History] Valsartan/Hydrochlorothiazide [Valsartan-Hctz 320-25 mg Tab] 1 each PO DAILY 09/01/15 [History] Calcium Carbonate/Vitamin D3 [Calcium 600-Vit D3 800 Tab] 1 each PO DAILY 02/02/17 [History] [place]-3 Fatty Acids/Fish Oil [Fish Oil 1,200 mg Softgel] 2 each PO DAILY 02/02/17 [History] Azithromycin 500 mg PO DAILY #5 tablet 02/04/17 [Rx] Cefdinir [Omnicef] 300 mg PO BID #14 cap 02/04/17 [Rx] Fluconazole [Diflucan] 150 mg PO ONETIME #1 tablet 02/04/17 [Rx] guaiFENesin [Robitussin] 100 mg PO Q6H PRN #0 cup 02/04/17 [Rx] Past Medical History HEENT History: Reports: Impaired Vision Other HEENT History: bilateral cataract surgery Cardiovascular History: Reports: Hypertension Respiratory History: Reports: None Gastrointestinal History: Reports: GERD Genitourinary History: Reports: UTI, Recurrent Other Genitourinary History: Bladder repain, wears a pesory 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 - Infectious Disease History Infectious Disease History: Reports: Chicken Pox, Measles, Mumps - Past Surgical History HEENT Surgical History: Reports: Cataract Surgery, Naso-Sinus Surgery Respiratory Surgical History: Reports: None GI Surgical History: Reports: Appendectomy, Cholecystectomy, Hernia Repair/Other Other GI Surgeries/Procedures: Hiatal hernia repair Female Surgical History: Reports: Hysterectomy, Tubal Ligation Endocrine Surgical History: Reports: None Neurological Surgical History: Reports: None Musculoskeletal Surgical History: Reports: Knee Replacement Other Musculoskeletal Surgeries/Procedures:: r knee partial replace Dermatological Surgical History: Reports: None Social & Family History - Family History Family Medical History: No Pertinent Family History - Tobacco Use Tobacco Use Status *Q: Never Tobacco User Second Hand Smoke Exposure: No - Caffeine Use Caffeine Use: Reports: Coffee Caffeine Use Comment: 1 cup/day - Living Situation & Occupation Occupation: Retired Review of Systems - Review of Systems Review Of Systems: Comprehensive ROS is negative, except as noted in HPI. ED EXAM, GENERAL - Physical Exam Exam: See Below Exam Limited By: No Limitations General Appearance: Alert, No Apparent Distress Eye Exam: Bilateral Eye: EOMI Ears: Normal External Exam, Hearing Grossly Normal Nose: Normal Inspection Throat/Mouth: Normal Inspection, Normal Voice, No Airway Compromise Head: Atraumatic, Normocephalic Neck: Normal Inspection Respiratory/Chest: No Respiratory Distress, Lungs Clear, Normal Breath Sounds Cardiovascular: Normal Peripheral Pulses, Regular Rate, Rhythm GI/Abdominal: Normal Bowel Sounds, Soft, Non-Tender Extremities: Limited Range of Motion (right hip. slightly shortened external rotation) Neurological: Alert, Oriented, Normal Cognition Psychiatric: Normal Affect Course - Vital Signs Last Recorded V/S: Last Vital Signs Temp 98 F 07/24/21 19:30 Pulse 88 07/24/21 19:30 Resp 18 07/24/21 19:30 BP 153/123 H 07/24/21 19:30 Pulse Ox 94 L 07/24/21 19:30 - Orders/Labs/Meds Orders: Active Orders 24 hr Category Date Time Status CULTURE URINE [RM] Stat Lab 07/24/21 20:38 Received Labs: Laboratory Tests 07/24/21 07/24/21 07/24/21 Range/Units 19:47 19:47 19:47 WBC 7.6 (5.0-10.0) 10^3/uL RBC 4.87 (4.2-5.4) 10^6/uL Hgb 14.1 (12.0-16.0) g/dL Hct 43.1 (37.0-47.0) % MCV 88.5 (80-100) fL MCH 29.0 (27.0-34.0) pg MCHC 32.7 L (33.0-35.0) g/dL Plt Count 244 (150-450) 10^3/uL Neut % (Auto) 54.9 (42.2-75.2) % Lymph % (Auto) 35.6 (20.5-50.1) % [place] % (Auto) 7.3 (2-8) % Eos % (Auto) 1.9 (1.0-3.0) % Baso % (Auto) 0.3 (0.0-1.0) % PT 10.1 (9.0-12.0) SEC INR 1.0 (0.9-1.2) Sodium 139 (136-145) mmol/L Potassium 3.3 L (3.5-5.1) mmol/L Chloride 102 (98-107) mmol/L Carbon Dioxide 29 (21-32) mmol/L Anion Gap 11.3 (7-13) mEq/L BUN 19 H (7-18) mg/dL Creatinine 0.91 (0.55-1.02) mg/dL Est Cr Clr Drug Dosing TNP Estimated GFR (MDRD) 59 BUN/Creatinine Ratio 20.9 (No establ ref range) Glucose 137 H (70-99) mg/dL Calcium 8.9 (8.5-10.1) mg/dL Total Bilirubin 0.4 (0.2-1.0) mg/dL AST 15 (15-37) U/L ALT 21 (14-59) U/L Alkaline Phosphatase 56 (46-116) U/L Total Protein 7.6 (6.4-8.2) g/dL Albumin 3.8 (3.4-5.0) g/dL Globulin 3.8 Albumin/Globulin Ratio 1.0 Urine Color (YELLOW) Urine Appearance (CLEAR) Urine pH (5.0-9.0) Ur Specific [place] (1.005-1.030) Urine Protein (NEGATIVE) Urine Glucose (UA) (NEGATIVE) Urine Ketones (NEGATIVE) Urine Occult Blood (NEGATIVE) Urine Nitrite (NEGATIVE) Urine Bilirubin (NEGATIVE) Urine Urobilinogen (0.2-1.0) mg/dL Ur Leukocyte Esterase (NEGATIVE) Urine RBC (0-5) /HPF Urine WBC (0-5/HPF) /HPF Ur Epithelial Cells (NOT SEEN) /HPF Urine Bacteria (0-FEW/HPF) /HPF SARS-CoV-2 RNA (CLARISSA) (NEGATIVE) 07/24/21 07/24/21 Range/Units 20:38 20:38 WBC (5.0-10.0) 10^3/uL RBC (4.2-5.4) 10^6/uL Hgb (12.0-16.0) g/dL Hct (37.0-47.0) % MCV (80-100) fL MCH (27.0-34.0) pg MCHC (33.0-35.0) g/dL Plt Count (150-450) 10^3/uL Neut % (Auto) (42.2-75.2) % Lymph % (Auto) (20.5-50.1) % [place] % (Auto) (2-8) % Eos % (Auto) (1.0-3.0) % Baso % (Auto) (0.0-1.0) % PT (9.0-12.0) SEC INR (0.9-1.2) Sodium (136-145) mmol/L Potassium (3.5-5.1) mmol/L Chloride (98-107) mmol/L Carbon Dioxide (21-32) mmol/L Anion Gap (7-13) mEq/L BUN (7-18) mg/dL Creatinine (0.55-1.02) mg/dL Est Cr Clr Drug Dosing Estimated GFR (MDRD) BUN/Creatinine Ratio (No establ ref range) Glucose (70-99) mg/dL Calcium (8.5-10.1) mg/dL Total Bilirubin (0.2-1.0) mg/dL AST (15-37) U/L ALT (14-59) U/L Alkaline Phosphatase (46-116) U/L Total Protein (6.4-8.2) g/dL Albumin (3.4-5.0) g/dL Globulin Albumin/Globulin Ratio Urine Color Yellow (YELLOW) Urine Appearance Slightly cloudy (CLEAR) Urine pH 7.0 (5.0-9.0) Ur Specific [place] 1.025 (1.005-1.030) Urine Protein Negative (NEGATIVE) Urine Glucose (UA) Negative (NEGATIVE) Urine Ketones Trace H (NEGATIVE) Urine Occult Blood Trace-intact H (NEGATIVE) Urine Nitrite Negative (NEGATIVE) Urine Bilirubin Negative (NEGATIVE) Urine Urobilinogen 0.2 (0.2-1.0) mg/dL Ur Leukocyte Esterase Large H (NEGATIVE) Urine RBC 0-5 (0-5) /HPF Urine WBC 50-75 H (0-5/HPF) /HPF Ur Epithelial Cells Many H (NOT SEEN) /HPF Urine Bacteria Many H (0-FEW/HPF) /HPF SARS-CoV-2 RNA (CLARISSA) Negative (NEGATIVE) Meds: Medications Discontinued Medications Generic Name Dose Route Start Last Admin Trade Name Tomq PRN Reason Stop Dose Admin Fentanyl 50 mcg 07/24/21 20:11 07/24/21 20:21 Fentanyl 100 Mcg/2 Ml Sdv IVPUSH 07/24/21 20:12 50 mcg ONETIME ONE Administration Protocol Ondansetron HCl 4 mg 07/24/21 20:12 07/24/21 20:22 Ondansetron 4 Mg/2 Ml Sdv IVPUSH 07/24/21 20:13 4 mg ONETIME ONE Administration - Re-Assessments/Exams Free Text/Narrative Re-Assessment/Exam: 07/25/21 06:25 Dr Hessa [facility] accepting. Patient desires [facility], as PCP there. No bed availability. Daughter requesting [facility]. No bed availability. Informed. Patient agreeable to transfer to [facility] understanding of bed situation. Tx via [facility]. Departure - Departure Time of Disposition: 21:00 Disposition: DC/Tfer to Acute Hospital 02 Condition: Good Clinical Impression: Fracture of hip, right, closed Qualifiers: Encounter type: initial encounter Qualified Code(s): S72.001A - Fracture of unspecified part of neck of right femur, initial encounter for closed fracture Fall at home Qualifiers: Encounter type: initial encounter Qualified Code(s): W19.XXXA - Unspecified fall, initial encounter; Y92.009 - Unspecified place in unspecified non- institutional (private) residence as the place of occurrence of the external cause - Discharge Information *PRESCRIPTION DRUG MONITORING PROGRAM REVIEWED*: No *COPY OF PRESCRIPTION DRUG MONITORING REPORT IN PATIENT KEILA: No Forms: ED Department Discharge Sepsis Event Note (ED) - Evaluation Sepsis Screening Result: No Definite Risk - Focused Exam Vital Signs: Vital Signs Temp Pulse Resp BP Pulse Ox 07/24/21 19:30 98 F 88 18 153/123 H 94 L - My Orders Last 24 Hours: My Active Orders 07/24/21 20:38 CULTURE URINE [RM] Stat - Assessment/Plan Last 24 Hours: My Active Orders 07/24/21 20:38 CULTURE URINE [RM] Stat
--- NOTE | 2021-07-24 20:03 | CT ---
PROCEDURE INFORMATION: Exam: CT Pelvis Without Contrast; Skeletal Exam date and time: 07/24/2021 7:27 PM Age: 81 years old Clinical indication: Other: Fall right hip pain TECHNIQUE: Imaging protocol: Computed tomography images of the pelvis without contrast. Exam focused on the skeletal structures. Radiation optimization: All CT scans at this facility use at least one of these dose optimization techniques: automated exposure control; mA and/or kV adjustment per patient size (includes targeted exams where dose is matched to clinical indication); or iterative reconstruction. COMPARISON: No relevant prior studies available. FINDINGS: Bones/joints: Acute, comminuted, mildly displaced and impacted intertrochanteric fracture of the proximal right femur. No other acute fracture. No dislocation. Diffuse demineralization. Soft tissues: Regional soft tissue swelling. IMPRESSION: Acute, comminuted, mildly displaced and impacted intertrochanteric fracture of the proximal right femur.
[2021-07-24] MEDS ORDERED: fentaNYL 100 MCG/2 ML SDV IVPUSH ONE (20:11)
[2021-07-24 20:12] LABS: ANION GAP 11.3 mEq/L (7-13); CHLORIDE,CL 102 mmol/L (98-107); SODIUM,NA 139 mmol/L (136-145)
[2021-07-24] MEDS ORDERED: Ondansetron 4 MG/2 ML SDV IVPUSH ONE (20:12)
== END 2021-07-24 21:02 ==
LOC: DL.ED 19:05
DX: S72.001A Fracture of unspecified part of neck of right femur, initial encounter for closed fracture (principal); K21.9 Gastro-esophageal reflux disease without esophagitis; I10 Essential (primary) hypertension; E11.9 Type 2 diabetes mellitus without complications; M19.90 Unspecified osteoarthritis, unspecified site; Z86.73 Personal history of transient ischemic attack (TIA), and cerebral infarction without residual deficits; Z88.5 Allergy status to narcotic agent; Z91.011 Allergy to milk products; Z88.8 Allergy status to other drugs, medicaments and biological substances; Z79.82 Long term (current) use of aspirin; Z79.899 Other long term (current) drug therapy; Z20.822 Contact with and (suspected) exposure to COVID-19; W18.39XA Other fall on same level, initial encounter; Y92.009 Unspecified place in unspecified non-institutional (private) residence as the place of occurrence of the external cause
CPT/HCPCS: 36415; 72192; 80053; 81001; 85025; 85610; 87086; 87088; 87186; 96374; 96375; 99285-25; J2405; J3010; U0002

== ENCOUNTER 2022-12-02 12:14 | Emergency (ER) | payer OTHER, MEDICARE ==
[2022-12-02] MEDS ORDERED: Iopamidol 612 MG/ML 100 ML Bottle IVPUSH ONE (12:23)
[2022-12-02 13:00] LABS: ANION GAP 11.6 mEq/L (7-13)
[2022-12-02 14:14] VITALS: BP 167/99; PULSE 89
== END 2022-12-02 14:01 | disposition home or self-care (01) ==
LOC: DL.ED 12:14
DX: S20.211A Contusion of right front wall of thorax, initial encounter (principal); I10 Essential (primary) hypertension; K21.9 Gastro-esophageal reflux disease without esophagitis; M19.90 Unspecified osteoarthritis, unspecified site; E11.9 Type 2 diabetes mellitus without complications; Z88.8 Allergy status to other drugs, medicaments and biological substances; Z88.5 Allergy status to narcotic agent; Z91.011 Allergy to milk products; Z79.82 Long term (current) use of aspirin; Z79.899 Other long term (current) drug therapy; V89.2XXA Person injured in unspecified motor-vehicle accident, traffic, initial encounter; Y92.410 Unspecified street and highway as the place of occurrence of the external cause
CPT/HCPCS: 36415; 71260; 74177; 80053; 81001; 84484; 85025; 93010; 99284; 99285; Q9967

== ENCOUNTER 2024-03-02 06:07 | Emergency (ER) | payer MEDICARE, OTHER ==
[2024-03-02 06:31] LABS: BASOPHILS PERCENT AUTO 0.2 % (0.0-1.0); EOSINOPHILS PERCENT AUTO 0.8 % (1.0-3.0); HEMATOCRIT 37.3 % (37.0-47.0); HEMOGLOBIN 12.3 g/dL (12.0-16.0); LYMPHOCYTES PERCENT AUTO 29.6 % (20.5-50.1); MEAN CORPUSCULAR HEMOGLOBIN 29.7 pg (27.0-34.0); MEAN CORPUSCULAR VOLUME 90.1 fL (80-100); MONOCYTES PERCENT AUTO 6.8 % (2-8); NEUTROPHILS PERCENT AUTO 62.6 % (42.2-75.2); PLATELET COUNT,PLT 350 10^3/uL (150-450); RED BLOOD CELL COUNT 4.14 10^6/uL (4.2-5.4); WHITE BLOOD CELL COUNT,WBC 13.9 10^3/uL (5.0-10.0)
[2024-03-02 06:55] LABS: ALBUMIN 3.5 g/dL (3.4-5.0); ANION GAP 10.5 mEq/L (7-13); BILIRUBIN TOTAL 0.5 mg/dL (0.2-1.0); BUN/CREATININE RATIO 48.8 (No establ ref range); CALCIUM 8.5 mg/dL (8.5-10.1); CREATININE 0.84 mg/dL (0.55-1.02); EST CRCL DRUG DOSING (CG) 36.95 mL/min; POTASSIUM,K 3.5 mmol/L (3.5-5.1); PROTEIN TOTAL,TP 6.9 g/dL (6.4-8.2)
[2024-03-02] MEDS: Pantoprazole 40 MG Vial IVPUSH ONE (07:07)
[2024-03-02] MEDS: Lactated Ringers 1,000 ML IV ONE (07:10)
[2024-03-02 07:13] VITALS: BP 156/99; PULSE 110
[2024-03-02 07:20] LABS: PROTHROMBIN TIME 10.1 SEC (9.0-12.0)
[2024-03-02] MEDS: Iopamidol 612 MG/ML 100 ML Bottle IVPUSH ONE (07:33)
[2024-03-02 10:00] LABS: BASOPHILS PERCENT AUTO 0.1 % (0.0-1.0); EOSINOPHILS PERCENT AUTO 0.1 % (1.0-3.0); HEMATOCRIT 34.8 % (37.0-47.0); HEMOGLOBIN 11.4 g/dL (12.0-16.0); MEAN CORPUSCULAR HEMOGLOBIN 29.7 pg (27.0-34.0); MEAN CORPUSCULAR HGB CONC 32.8 g/dL (33.0-35.0); MEAN CORPUSCULAR VOLUME 90.6 fL (80-100); MONOCYTES PERCENT AUTO 6.9 % (2-8); NEUTROPHILS PERCENT AUTO 74.9 % (42.2-75.2); PLATELET COUNT,PLT 327 10^3/uL (150-450); RED BLOOD CELL COUNT 3.84 10^6/uL (4.2-5.4); WHITE BLOOD CELL COUNT,WBC 15.2 10^3/uL (5.0-10.0)
[2024-03-02] MEDS: Pantoprazole 40 MG in Sodium Chloride 0.9% 100 ML IV ONE (10:06)
[2024-03-02] MEDS: Sodium Chloride 0.9% 1,000 ML IV SCH (10:06)
== END 2024-03-02 10:55 ==
LOC: DL.ED 06:07
DX: K92.2 Gastrointestinal hemorrhage, unspecified (principal); I10 Essential (primary) hypertension; E11.9 Type 2 diabetes mellitus without complications; Z90.49 Acquired absence of other specified parts of digestive tract; Z90.710 Acquired absence of both cervix and uterus; Z79.82 Long term (current) use of aspirin; Z79.899 Other long term (current) drug therapy; Z88.5 Allergy status to narcotic agent; Z91.011 Allergy to milk products; Z88.6 Allergy status to analgesic agent; Z91.048 Other nonmedicinal substance allergy status
CPT/HCPCS: 36415; 74177; 80053; 85025; 85610; 96361; 96365; 96376; 99285; 99285-25; C9113; J3490; J7030; J7120; Q9967